=== PATIENT | female | born 1950 | race Two or more races ===

== ENCOUNTER 2018-12-25 15:39 | Emergency (ER) | payer OTHER ==
[~2018-12-25] VITALS: Ht 160 cm; Wt 79.4 kg
[2018-12-25] MEDS ORDERED: LANTUS SOL100 UNIT/1 (15:55)
[2018-12-25] MEDS ORDERED: SYNTHROID50 MCG (15:56)
[2018-12-25] MEDS ORDERED: COZAAR25 MG (15:56)
[2018-12-25] MEDS ORDERED: HUMULIN 70100 UNIT/2 (15:56)
[2018-12-25] MEDS ORDERED: PLAVIX75 MG (15:56)
[2018-12-25] MEDS ORDERED: [UNRECOGNIZED DRUG - OTHER] (15:58)
[2018-12-25] MEDS ORDERED: ALB (15:58)
== END 2018-12-25 20:03 | disposition home or self-care (01) ==
LOC: ER 15:39
DX: J22 Unspecified acute lower respiratory infection (principal); R53.81 Other malaise; R05 Cough